=== PATIENT | female | born 1940 | race African-American/Black ===

== ENCOUNTER → 2018-01-26 | Outpatient (CLI) | payer OTHER, BC ==
[~2018-01-26] VITALS: Ht 152.4 cm; Wt 71.2 kg
[~2018-01-26] MED LIST: BUSPIRONE HCL10 MG PO; COLAZAL750 MG PO; CRESTOR10 MG PO; HYDROCHLOROTH12.5 M1 PO; MOBIC15 MG PO; TOPROL XL25 MG PO; TYLENOL EXTRA500 MG PO; VITAMIN D2000 UNIT PO; ZYRTEC10 M5 PO
--- NOTE | ~2018-01-26 | CATHLAB ---
[facility] [address] [place] [address] INVASIVE PROCEDURE REPORT Name: SÁNCHEZ JUAN Hugo [facility] #: [id number] Admission: 01/26/18 Attend Phys: Korey Hess Discharge: Date of : 42 Date of Service: 01/29/18 1658 Report #: [id number] THIS REPORT FOR: //name// APPROVED REPORT Study performed: 01/26/2018 11:00:48 Patient Details Patient Status: Out-Patient Room #: The patient is a 77 year-old female Event Personnel Korey Geronimo Marketing Intern, Brain Rodriguez RN senior linux administrator Performed Left Heart Cath w/or w/o Coronaries [id number] [facility], supervision of conscious sedation Indication Abnormal ECG, Markedly elevated coronary calcium score Risk Factors Hypertension Procedure Narrative The Right Groin^ was infiltrated with 1% Lidocaine subcutaneous anesthesia. A PINNACLE 4FR Sheath #[id number] sheath was inserted into the RFA^. Coronary angiography was performed using coronary diagnostic catheters. The right coronary system was accessed and visualized with a JR4 catheter. The left coronary system was accessed and visualized with a JL4 catheter. The left ventricle was accessed and visualized with a PIGTAIL catheter. Left ventricular/Aortic Valve gradient assessed via catheter pullback. Hemostasis was obtained with manual pressure following sheath removal without any complications. There was no hematoma. Intraoperative Conscious Sedation Sedation start time: 11.23 Case end Time: 11.39 Fluoro Time: 3.15 minutes Dose: 230 mGy Contrast Type and Amount: Omnipaque 60 ml [facility] [address] [address] INVASIVE PROCEDURE REPORT Name: SÁNCHEZ JUAN Room #: REG Sheree#: [id number] Admission: 01/26/18 Attend Phys: Korey Hess Discharge: Date of : 42 Date of Service: 01/29/18 1658 Report #: [id number] Diagnostic Cath Left Main Normal origin and caliber bifurcates left anterior descending left circumflex free of significant high-grade lesion LAD Large-caliber vessel courses in the anterior interventricular sulcus rise to septal and diagonal branches. It is quite tortuous in its course but is free of high-grade obstructive lesions Diagonal 1 Small to moderate caliber vessel free of obstructive lesions Circumflex Moderate to large caliber vessel courses in the AV groove posteriorly giving rise to marginal branches all of which are free of high-grade disease but they do have some mild luminal irregularities noted OM1 Small-caliber to moderate caliber vessel free of high-grade disease very tortuous in its course OM2 Terminal aspect of the left circumflex is second marginal branch along the lateral posterior aspect of the heart with luminal irregularities but no high-grade lesions are very tortuous in its course Right Coronary Large-caliber vessel of normal origin and has a proximal LAD that appears to be only 30 or so percent. There is a region that appears to have a circumferential constriction but is not flow-limiting. R PDA Moderate caliber vessel free of high-grade stenosis tortuous in its course as it proceeds towards the apex Left Ventriculography Left Ventriculography was not performed. Hemodynamics The aortic pressure is 145/70 mmHg with a mean of 72 mmHg. The left ventricular pressure is 159/10 mmHg with a mean of mmHg. The left ventricular end diastolic pressure is 27 mmHg. There was no gradient across the aortic valve upon pullback. Pullback from the left ventricle to the aorta revealed no gradient across the aortic valve. Conclusion 1. Coronary disease mild with significant tortuosity of all her coronary vessels 2. Abnormal urinalysis elevated liver ventricular end-diastolic pressures [facility] [address] [place] [address] INVASIVE PROCEDURE REPORT Name: SÁNCHEZ JUAN Room #: [facility] [id number] Admission: 01/26/18 Attend Phys: Korey Hess Discharge: Date of : 42 Date of Service: 01/29/181657 Report #: [id number] Recommendations Cardiac Risk Reduction Program <ELECTRONICALLY SIGNED> By: Korey Geronimo MD 01/29/181657 57 1658 Kroey Geronimo MD /INF
[2018-01-26 10:08] VITALS: BP 152/69
[2018-01-26 10:23] LABS: HEMATOCRIT 43.4 % (37.0-47.0); HEMOGLOBIN 14.5 gm/dL (12.0-15.0); MCH 32.1 pg (26.0-34.0); MCHC 33.4 g/dL (28.0-37.0); MCV 96.1 fL (80.0-100.0); RBC 4.51 mil/uL (4.20-5.00); RDW 15.5 % (10.5-14.5); WBC 6.6 thou/uL (4.0-11.0)
[2018-01-26 10:31] LABS: CREATININE 1.2 mg/dL (0.6-1.0); POTASSIUM 4.4 mmol/L (3.5-5.1)
== END | disposition home or self-care (01) ==
LOC: CATH 08:04
PROVIDERS: Internal Medicine
DX: I25.10 Atherosclerotic heart disease of native coronary artery without angina pectoris (principal); I50.1 Left ventricular failure, unspecified; I77.89 Other specified disorders of arteries and arterioles; I10 Essential (primary) hypertension; E78.5 Hyperlipidemia, unspecified; E07.9 Disorder of thyroid, unspecified; I73.9 Peripheral vascular disease, unspecified; K21.9 Gastro-esophageal reflux disease without esophagitis; F17.210 Nicotine dependence, cigarettes, uncomplicated; Z98.890 Other specified postprocedural states; Z90.710 Acquired absence of both cervix and uterus; Z79.899 Other long term (current) drug therapy

== ENCOUNTER → 2020-08-21 | Outpatient (CLI) | payer OTHER, BC | LOC: SJCVC 12:40 | PROVIDERS: ATTEND Internal Medicine | DX: I25.10 Atherosclerotic heart disease of native coronary artery without angina pectoris (principal); R94.31 Abnormal electrocardiogram [ECG] [EKG]; I49.9 Cardiac arrhythmia, unspecified; I11.9 Hypertensive heart disease without heart failure; I42.1 Obstructive hypertrophic cardiomyopathy; E78.5 Hyperlipidemia, unspecified; I73.9 Peripheral vascular disease, unspecified; F17.210 Nicotine dependence, cigarettes, uncomplicated; Z79.899 Other long term (current) drug therapy ==